=== PATIENT | male | born 1995 | race Caucasian/White ===

== ENCOUNTER 2016-08-18 15:42 | Emergency (ER) | payer SELFPAY ==
--- NOTE | ~2016-08-18 | ER ---
PATIENT'S NAME: NAHUN [facility] AGE: 21 Y [address] ROOM: [place] [address] LOCATION: [facility] ADMIT DATE: 08/18/2016 ER/Outpatient Report DISCHARGE DATE: 08/18/2016 FAMILY PHYSICIAN: PHYSICIAN, NO ATTENDING PHYSICIAN: Ashok Desai CHIEF COMPLAINT: Left-sided jaw swelling. TIME OF THE PATIENT ARRIVAL: 1542 hours. TIME OF THE PATIENT EVALUATION: 1548 hours. HISTORY OF PRESENT ILLNESS: This is a 21-year-old male who presents to the ER who states he has had left- sided lower dental pain and jaw swelling for the past 5 days. The patient states he has been having some purulent drainage since last night. He states he has been taking ibuprofen for several days, but has not been effective. He does not believe he has been running any fevers at home. He denies any other problems at this time. ALLERGIES: NO KNOWN ALLERGIES. MEDICATIONS: Please see medication list nurse's notes. PAST MEDICAL HISTORY: Negative. PAST SURGERIES: None. SOCIAL HISTORY: He quit smoking in 2016. Denies any drug or alcohol use. REVIEW OF SYSTEMS: A 10-point review of system was completed and was negative with the exception of those discussed in the HPI. PHYSICAL EXAMINATION: VITAL SIGNS: Height 6 feet, 2 inches stated, weight 82.9 kg taken, blood pressure is 151/66, pulse 98, respirations 20, temperature 96.5 degrees PATIENT'S NAME: NAHUN HARP [facility] AGE: 21 Y [address] ROOM: [place] [address] LOCATION: [facility] ADMIT DATE: 08/18/2016 ER/Outpatient Report DISCHARGE DATE: 08/18/2016 FAMILY PHYSICIAN: PHYSICIAN, NO ATTENDING PHYSICIAN: Ashok Desai tympanically, saturations 99% on room air. Ronen Coma Score is 15. GENERAL: Alert, calm, well-developed, 21-year-old male, in mild distress. HEENT: Head: Normocephalic. Eyes: Pupils are equal and reactive to light. Ears: TMs display good light reflexes bilaterally. Auditory canals clear. Nose: Turbinates pink with no drainage. Throat: No exudates or erythema. He does have swelling noted to his left lower jaw line. He does have some fluctuance noted to his very back molar. We cannot express any purulent drainage with pushing on it with a tongue blade. This does cause him discomfort however. NECK: Supple. No lymphadenopathy. LUNGS: Clear to auscultation bilaterally. No wheeze or crackles. Normal respiratory effort. HEART: Regular rate and rhythm. No lifts, thrills, or murmurs. LABS AND X-RAYS: None were done. IMPRESSION: Left lower jaw swelling, secondary to dental abscess. ASSESSMENT AND PLAN: I did discuss the patient care with Dr. Desai. Dr. Desai also evaluated the patient. We did numb the abscess site with 1% lidocaine. We then took an 11 blade scalpel and pierced the fluctuant area in the left lower jaw. We did try to express purulent drainage, but were not successful. The patient did tolerate this well. We will dismiss him to home with a prescription for amoxicillin 875 mg 1 p.o. b.i.d. x10 days as well as [place] to use for severe pain. I advised not take any extra Tylenol if he is taking the [place], but he may take ibuprofen. We advised he see his dentist as soon as possible. The patient understands and agrees with care. CORTEZ FRIED PA-C FOR DO JORDIN MELO/dinh /[id number] ATTENDING ADDENDUM: I saw and evaluated the patient. I have discussed with the PA, agree with the PA's findings and plan and agree with the documented note above. I personally did perform the incision and drainage. Consent was obtained. The site was injected with 1% lidocaine. An 11 blade scalpel was used to make a stab incision. A sterile cutip was used to explore the area. A small amount of bloody purulent material was expressed. The patient was placed on Amoxicillin and instructed to follow up with a dentist in 2 days. ASHOK DESAI DO d: 08/19/16 0501 t: 08/26/16 0623, OUTPATIENT REPORT
== END 2016-08-18 16:44 | disposition disaster alternative care site (69) ==
LOC: GMED 15:42
PROC: 0C9X0Z0 Drainage of Lower Tooth, Open Approach, Single (ICD-10-PCS; principal; 2016-08-18)
DX: K04.7 Periapical abscess without sinus (principal); Z87.891 Personal history of nicotine dependence